=== PATIENT | male | born 1955 | race African-American/Black ===

== ENCOUNTER 2020-04-25 08:34 | Inpatient (IN) | payer MEDICARE, MEDICAID ==
[~2020-04-25] VITALS: Ht 175.3 cm; Wt 97.5 kg
[2020-04-25] MEDS ORDERED: LISI-186 PO (08:39)
[2020-04-25 10:18] LABS: BASOPHILS % 0.3 % (0.0-2.0); HEMATOCRIT. 47.6 % (42.0-52.0); HEMOGLOBIN. 16.2 g/dL (14.0-18.0); LYMPHOCYTES % 19.7 % (20.0-50.0); MEAN CORPUSCULAR HEMOGLOBIN 31.9 pg (28.0-32.0); MEAN CORPUSCULAR VOLUME 93.8 fL (80.0-94.0); MEAN PLATELET VOLUME 11.2 fl (7.4-10.4); MONOCYTES % 5.1 % (2.0-8.0); NEUTROPHILS % 73.9 % (40.0-76.0); PLATELET 132 x1000/uL (130-400); RED BLOOD CELL COUNT 5.08 mill/uL (4.7-6.1); RED CELL DISTRIBUTION WIDTH 13.4 % (11.6-14.6)
[2020-04-25 10:23] LABS: CHLORIDE 108 mEq/L (98-107)
[2020-04-25] MEDS ORDERED: FUROSEMIDE 40MG/4ML VIAL IV ONE (10:45)
[2020-04-25] MEDS ORDERED: ASPIRIN 81MG TABLET PO ONE (10:45)
[2020-04-25] MEDS ORDERED: NITROGLYCERIN 0.4MG TABLET SL SL PRN (10:45)
[2020-04-25] MEDS ORDERED: CLONIDINE 0.1MG TABLET PO NR (14:15)
[2020-04-25] MEDS ORDERED: ONDANSETRON HCL 4MG/2ML INJ IV PRN (14:30)
[2020-04-25] MEDS ORDERED: IPRATROPIUM/ALBUTEROL 0.5-3(2.5)MG/3ML NEB HHN PRN (14:30)
[2020-04-25] MEDS ORDERED: DIPHENHYDRAMINE 50MG/ML VIAL IV PRN (14:30)
[2020-04-25] MEDS ORDERED: ENOXAPARIN 40MG/0.4ML SYR SUBCUT SCH (15:00)
[2020-04-25 15:23] LABS: PHOSPHORUS 3.2 mg/dL (2.5-4.9)
[2020-04-25 16:00] VITALS: BP 161/128
[2020-04-25 16:04] VITALS: BP 161/128
[2020-04-25] MEDS: FUROSEMIDE 40MG/4ML VIAL IV SCH (16:30)
[2020-04-25 18:00] VITALS: BP 145/61
[2020-04-25] MEDS: HYDRALAZINE 20MG/ML VIAL IV PRN (18:48)
[2020-04-25 19:47] VITALS: BP 134/87
[2020-04-25 21:47] VITALS: BP 123/96
[2020-04-25 23:47] VITALS: BP 148/37
[2020-04-26] VITALS (11 sets, daily range): BP systolic 127–187; BP diastolic 77–135
[2020-04-26 06:33] LABS: BASOPHILS % 0.7 % (0.0-2.0); CHLORIDE 107 mEq/L (98-107); EOSINOPHILS % 2.8 % (0.0-5.0); HEMOGLOBIN. 15.9 g/dL (14.0-18.0); LYMPHOCYTES % 26.2 % (20.0-50.0); MEAN CORPUSCULAR HEMOGLOBIN 31.8 pg (28.0-32.0); MEAN CORPUSCULAR VOLUME 92.2 fL (80.0-94.0); MONOCYTES % 6.2 % (2.0-8.0); NEUTROPHILS % 64.1 % (40.0-76.0); PLATELET 125 x1000/uL (130-400); RED BLOOD CELL COUNT 4.99 mill/uL (4.7-6.1); RED CELL DISTRIBUTION WIDTH 13.6 % (11.6-14.6)
[2020-04-26 06:43] LABS: LDL CHOLESTEROL 101 mg/dL (5-100)
[2020-04-26 06:45] LABS: HDL CHOLESTEROL 40 mg/dL (40-59)
[2020-04-26] MEDS ORDERED: POTASSIUM CHLORIDE 20MEQ TABLET SR PO SCH (08:00)
[2020-04-26] MEDS: FUROSEMIDE 40MG/4ML VIAL IV SCH ×3 (08:13→18:29)
[2020-04-26] MEDS ORDERED: LISINOPRIL 10MG TABLET PO SCH (11:00)
[2020-04-26] MEDS: POTASSIUM CHLORIDE 20MEQ TABLET SR PO SCH (11:32)
[2020-04-26] MEDS: ENOXAPARIN 30MG/0.3ML SYR SUBCUT SCH ×2 (11:33→21:10)
[2020-04-26] MEDS ORDERED: MAGNESIUM 2 G PREMIX 50 ML IV NR (13:00)
[2020-04-26] MEDS: HYDRALAZINE 20MG/ML VIAL IV PRN (15:02)
[2020-04-26] MEDS ORDERED: CLONIDINE 0.1MG TABLET PO PRN (19:30)
[2020-04-26] MEDS ORDERED: CARVEDILOL 12.5MG TABLET PO SCH (19:45)
[2020-04-26] MEDS: CARVEDILOL 6.25 MG TABLET PO SCH (21:00)
[2020-04-26] MEDS: ATORVASTATIN CALCIUM 20MG TABLET PO SCH (21:11)
[2020-04-26] MEDS: LISINOPRIL 20MG TABLET PO SCH (22:30)
[2020-04-27] VITALS (12 sets, daily range): BP systolic 111–152; BP diastolic 73–105
[2020-04-27 06:54] LABS: CHLORIDE 107 mEq/L (98-107)
[2020-04-27 06:55] LABS: BASOPHILS % 0.6 % (0.0-2.0); EOSINOPHILS % 3.4 % (0.0-5.0); HEMATOCRIT. 47.9 % (42.0-52.0); HEMOGLOBIN. 16.3 g/dL (14.0-18.0); LYMPHOCYTES % 24.6 % (20.0-50.0); MEAN CORPUSCULAR HEMOGLOBIN 31.6 pg (28.0-32.0); MEAN CORPUSCULAR VOLUME 93.1 fL (80.0-94.0); MEAN PLATELET VOLUME 11.8 fl (7.4-10.4); MONOCYTES % 7.3 % (2.0-8.0); NEUTROPHILS % 64.1 % (40.0-76.0); PLATELET 142 x1000/uL (130-400); RED BLOOD CELL COUNT 5.14 mill/uL (4.7-6.1); RED CELL DISTRIBUTION WIDTH 13.6 % (11.6-14.6)
[2020-04-27] MEDS: LISINOPRIL 20MG TABLET PO SCH ×2 (08:47→21:52)
[2020-04-27] MEDS: CARVEDILOL 6.25 MG TABLET PO SCH (08:47)
[2020-04-27] MEDS: FUROSEMIDE 40MG/4ML VIAL IV SCH (08:48)
[2020-04-27] MEDS: POTASSIUM CHLORIDE 20MEQ TABLET SR PO SCH (08:48)
[2020-04-27] MEDS: ENOXAPARIN 30MG/0.3ML SYR SUBCUT SCH ×2 (08:49→21:52)
[2020-04-27] MEDS: ATORVASTATIN CALCIUM 20MG TABLET PO SCH (21:52)
[2020-04-27] MEDS: CARVEDILOL 12.5MG TABLET PO SCH (21:52)
[2020-04-28] VITALS (9 sets, daily range): BP systolic 105–146; BP diastolic 53–100
[2020-04-28 06:59] LABS: BASOPHILS % 0.8 % (0.0-2.0); EOSINOPHILS % 4.4 % (0.0-5.0); HEMATOCRIT. 49.6 % (42.0-52.0); HEMOGLOBIN. 16.9 g/dL (14.0-18.0); LYMPHOCYTES % 27.3 % (20.0-50.0); MEAN CORPUSCULAR HEMOGLOBIN 31.6 pg (28.0-32.0); MEAN CORPUSCULAR VOLUME 92.8 fL (80.0-94.0); MEAN PLATELET VOLUME 12.4 fl (7.4-10.4); MONOCYTES % 10.1 % (2.0-8.0); NEUTROPHILS % 57.4 % (40.0-76.0); PLATELET 141 x1000/uL (130-400); RED BLOOD CELL COUNT 5.34 mill/uL (4.7-6.1); RED CELL DISTRIBUTION WIDTH 13.4 % (11.6-14.6)
[2020-04-28 07:02] LABS: CHLORIDE 106 mEq/L (98-107)
[2020-04-28] MEDS ORDERED: FUROSEMIDE 40MG/4ML VIAL IV SCH (08:00)
[2020-04-28] MEDS: CARVEDILOL 12.5MG TABLET PO SCH (08:25)
[2020-04-28] MEDS: LISINOPRIL 20MG TABLET PO SCH (08:25)
[2020-04-28] MEDS: POTASSIUM CHLORIDE 20MEQ TABLET SR PO SCH (08:26)
[2020-04-28] MEDS: ENOXAPARIN 30MG/0.3ML SYR SUBCUT SCH (08:27)
[2020-04-28] MEDS ORDERED: SPIRONOLACTONE 25MG TABLET PO SCH (10:15)
[2020-04-28] MEDS ORDERED: POTA-79 MT (11:44)
[2020-04-28] MEDS ORDERED: LISI-604 PO (11:44)
[2020-04-28] MEDS ORDERED: COR12 PO (11:44)
[2020-04-28] MEDS ORDERED: SPIR25TA6 MT (11:44)
[2020-04-28] MEDS ORDERED: FURO-151 MT (11:44)
== END 2020-04-28 14:45 | disposition home or self-care (01) | DRG 304 ==
LOC: ER 09:00 → 3WST 11:25 → ENRESERV 14:32 → 3WST 16:23
PROVIDERS: ADMIT Internal Medicine; ATTEND Internal Medicine
DX: I16.0 Hypertensive urgency (principal); I50.43 Acute on chronic combined systolic (congestive) and diastolic (congestive) heart failure; I42.9 Cardiomyopathy, unspecified; I11.0 Hypertensive heart disease with heart failure; E78.5 Hyperlipidemia, unspecified; R73.9 Hyperglycemia, unspecified; I27.20 Pulmonary hypertension, unspecified; R74.0 Nonspecific elevation of levels of transaminase and lactic acid dehydrogenase [LDH]; K76.1 Chronic passive congestion of liver; I34.0 Nonrheumatic mitral (valve) insufficiency
CPT/HCPCS: 36415; 71045; 80048; 80053; 80061; 82962; 83735; 83880; 84100; 84443; 84484; 85025; 93005; 93306; 93970; 99291; J0360; J1650; J1940; J3475